=== PATIENT | male | born 1950 | race Caucasian/White ===

== ENCOUNTER 2025-07-18 10:55 | Emergency (ER) | payer OTHER, SELFPAY ==
[2025-07-18 11:04] VITALS: BP 149/77; PULSE 62; RESP 18; TEMP 37.1; O2SAT 98
[2025-07-18 11:08] VITALS: BP 149/77; PULSE 62; RESP 18; TEMP 37.1; O2SAT 98
--- NOTE | 2025-07-18 11:39 | W.ED.GENAD ---
Discharge Plan Disposition Patient Disposition: Home Condition: Stable Discharge Details Clinical Impression: Blister of right heel with infection, Hyperglycemia Primary Care Provider: Unknown,Unknown ED Provider: George Borja Home Meds and New Rx's Prescriptions: New cephalexin 500 mg capsule 500 mg PO QID Qty: 27 0RF Continued buprenorphine 20 mcg/hour patch weekly 2 patch transdermal QWEEK Patient Comments: two patches weekly ascorbic acid (vitamin C) [Acerola C] 500 mg tablet,chewable 500 mg PO BID gabapentin 300 mg capsule 300 mg PO TID Rx Instructions: 1 capsule by mouth am, 1 capsule at noon, 2 capsules at bedtime. fluticasone propionate [24 Hour Allergy Relief] 50 mcg/actuation spray,suspension 2 spray intranasal DAILY PRN Rx Instructions: administer into each nostril metformin 500 mg tablet 1,000 mg PO BID atorvastatin [Lipitor] 80 mg tablet 80 mg PO DAILY aspirin 81 mg capsule 81 mg PO DAILY insulin glargine [Basaglar KwikPen U-100 Insulin] 100 unit/mL (3 mL) insulin pen 16 unit subcut QPM Ozempic 0.25 mg or 0.5 mg(2 mg/1.5 mL) pen injector 0.5 mg subcut QWEEK cholecalciferol (vitamin D3) 25 mcg (1,000 unit) capsule 25 mcg PO DAILY clopidogrel [Plavix] 75 mg tablet 75 mg PO DAILY Eliquis 5 mg tablet 5 mg PO BID ferrous sulfate [FeroSul] 325 mg (65 mg iron) tablet 325 mg PO BID folic acid 1 mg tablet 1,000 mcg PO DAILY losartan 100 mg tablet 100 mg PO DAILY pantoprazole 40 mg tablet,delayed release (DR/EC) 40 mg PO DAILY allopurinol 300 mg tablet 300 mg PO DAILY furosemide [Lasix] 20 mg tablet 20 mg PO BID PRN (Reason: weight gain) metoprolol tartrate [Lopressor] 50 mg tablet 50 mg PO DAILY naloxone [Narcan] 4 mg/actuation spray,non-aerosol 1 spray intranasal ONCE nitroglycerin 3 mg tablet extended release buccal PRN Discharge Instructions Instructions: Blisters, Wound Infection Additional Instructions: You received tetanus booster today. Please take full course of antibiotic as prescribed. Change dressings daily and monitor for worsening infection which would include increased redness, increased swelling, increased pain, or increased discharge. Be sure to use sterile dressing material. Monitor your blood glucose closely and be sure to use your diabetic medications as prescribed. Please follow-up with your primary care physician. Call today to arrange a follow-up appointment for reassessment next week with your primary care doctor. Return to the emergency department immediately for any worsening or new concerning symptoms including worsening infection. Discharge Data Discharge Date/Time-TO BE ENTERED AT DEPARTURE: 07/18/25 13:40 HPI General Mode of arrival: ambulatory. Date/Time Provider Initiated Documentation: 07/18/25 11:20. Limitations to Documentation: no limitations. Information obtained by: patient. HPI Narrative: HISTORY OF PRESENT ILLNESS 75-year-old male with diabetes presenting with a foot blister. Patient reports a blister on his foot. Patient notes he ruptured the blister by puncturing with a knife 2 days ago. Uncertain if infection was introduced via knife. Blister appeared 2 days ago, punctured same day, now increasingly red. No fever. No previous blisters in this area, unsure of cause. Suspects loosefitting socks and boot. Uncertain of last tetanus injection. No exposure to wet conditions while wearing boots. Diabetes managed with insulin, blood sugar 90 this morning, under [facility]. Leg stent for artery, functioning well. Related Data Home Medications ?Medication ?Instructions ?Recorded ?Confirmed allopurinol 300 mg tablet 300 mg PO DAILY 07/18/25 07/18/25 apixaban 5 mg tablet (Eliquis) 5 mg PO BID 07/18/25 07/18/25 ascorbic acid (vitamin C) 500 mg 500 mg PO BID 07/18/25 07/18/25 chewable tablet (Acerola C) aspirin 81 mg capsule 81 mg PO DAILY 07/18/25 07/18/25 atorvastatin 80 mg tablet (Lipitor) 80 mg PO DAILY 07/18/25 07/18/25 buprenorphine 20 mcg/hour weekly 2 patch transdermal QWEEK 07/18/25 07/18/25 transdermal patch cephalexin 500 mg capsule 500 mg PO QID #27 caps 07/18/25 cholecalciferol (vitamin D3) 25 25 mcg PO DAILY 07/18/25 07/18/25 mcg (1,000 unit) capsule clopidogrel 75 mg tablet (Plavix) 75 mg PO DAILY 07/18/25 07/18/25 ferrous sulfate 325 mg (65 mg 325 mg PO BID 07/18/25 07/18/25 iron) tablet (FeroSul) fluticasone propionate 50 2 spray intranasal DAILY PRN 07/18/25 07/18/25 mcg/actuation nasal spray,suspension (24 Hour Allergy Relief) folic acid 1 mg tablet 1,000 mcg PO DAILY 07/18/25 07/18/25 furosemide 20 mg tablet (Lasix) 20 mg PO BID PRN weight gain 07/18/25 07/18/25 gabapentin 300 mg capsule 300 mg PO TID 07/18/25 07/18/25 insulin glargine 100 unit/mL (3 16 unit subcut QPM 07/18/25 07/18/25 mL) subcutaneous pen (Basaglar KwikPen U-100 Insulin) losartan 100 mg tablet 100 mg PO DAILY 07/18/25 07/18/25 metformin 500 mg tablet 1,000 mg PO BID 07/18/25 07/18/25 metoprolol tartrate 50 mg tablet 50 mg PO DAILY 07/18/25 07/18/25 (Lopressor) naloxone 4 mg/actuation nasal 1 spray intranasal ONCE 07/18/25 07/18/25 spray (Narcan) nitroglycerin 3 mg buccal mg buccal PRN 07/18/25 tablet,extended release pantoprazole 40 mg tablet,delayed 40 mg PO DAILY 07/18/25 07/18/25 release semaglutide 0.25 mg or 0.5 mg (2 0.5 mg subcut QWEEK 07/18/25 07/18/25 mg/1.5 mL) subcutaneous pen injector (Ozempic) Previous Rx's ?Medication ?Instructions ?Recorded cephalexin 500 mg capsule 500 mg PO QID #27 caps 07/18/25 Allergies Allergy/AdvReac Type Severity Reaction Status Date / Time empagliflozin Allergy Severe Anaphylaxis Verified 07/18/25 12:12 Sulfa (Sulfonamide Allergy Severe Anaphylaxis Verified 07/18/25 12:12 Antibiotics) General Stated Complaint: Cellulitis LION: 3 Review of Systems Constitutional Constitutional: Denies fever(s) Integumentary/Breasts Skin/Breast: Reports as per HPI Exam Const General: cooperative and no acute distress Cardio Rate: regular rate and not tachycardic Rhythm: regular rhythm Skin Other: 6cm ruptured blister posterior right heel with surrounding erythema, no induration or fluctuance Extrem General: edema Laterality: bilateral (Trace, pitting about the ankles) Other: Distal motor and sensation intact. Unable to palpate dorsalis pedis or posterior tibial pulse. Nursing perform Doppler and easily identified pulse. Course Vital Signs Vital signs: Vital Signs Temperature 37.1 C 07/18/25 11:04 Pulse 62 07/18/25 11:04 Respiratory Rate 18 07/18/25 11:04 Blood Pressure 149/77 H 07/18/25 11:04 Pulse Oximetry 98 07/18/25 11:04 Temperature 37.1 C 07/18/25 11:08 Pulse 62 07/18/25 11:08 Respiratory Rate 18 07/18/25 11:08 Blood Pressure 149/77 H 07/18/25 11:08 Pulse Oximetry 98 07/18/25 11:08 Pain Level 7 07/18/25 11:08 Medical Decision Making ASSESSMENT AND PLAN Initial Assessment: Foot blister with mild erythema, suspect early infection. Diabetes mellitus, well-controlled. Differential Diagnosis: - Foot blister: Mild erythema, possible infection. Plan: Antibiotics, Bacitracin, Doppler study. - Tetanus: Uncertain vaccination status. Plan: Confirm status, administer tetanus shot if needed. ED Course: - Antibiotic prescription sent. - Bacitracin applied. - Doppler study confirmed pulse. - Tetanus shot administered. - POC checked - mild elevation Final Assessment: Foot blister with mild erythema, suspect early infection. Will initiate cephalexin and Bacitracin applied. Doppler study confirmed pulse. Tetanus shot administered. Clinical Impression: - Foot blister with mild erythema, suspect early infection. - Diabetes mellitus, well-controlled. Disposition: Discharge: Home. Return if increased redness, swelling, or fever. Follow-Up: Primary care for diabetes management. Patient Education: Keep foot clean and dry. Instructions on antibiotic use. Discussed need for tight glucose control. This document was written with the assistance of IDALMIS Kilgore. The patient consented to its use. PFSH All Active Problems Hyperglycemia (Acute) Blister of right heel with infection (Acute) Social History Smoking risk assessment performed?: No
[2025-07-18] MEDS: Cephalexin 500 MG CAP PO (11:41)
[2025-07-18 12:18] VITALS: BP 131/51; PULSE 60; RESP 16; O2SAT 99
[2025-07-18] MEDS: Diph,Pertuss(Acell),Tet Vac/Pf 0.5 ML SYR IM (12:45)
--- NOTE | 2025-07-19 09:24 | NUR.NOTE ---
Access chart to get the address so that discharge instructions and tetanus card will be mailed to him. Nursing Note:
== END 2025-07-18 13:40 | disposition home or self-care (01) ==
PROVIDERS: Emergency Provider Student in an Organized Health Care Education/Training Program
DX: S90.821A Blister (nonthermal), right foot, initial encounter (principal); X58.XXXA Exposure to other specified factors, initial encounter; E11.65 Type 2 diabetes mellitus with hyperglycemia
CPT/HCPCS: 99283; 99284; 90471; 36416; 82962; 90715

== ENCOUNTER → 2025-09-15 02:23 | Outpatient (CLI) | payer OTHER, SELFPAY ==
--- NOTE | 2025-09-15 10:54 | DI.RAD_ITS ---
Exam(s) XR FOOT RT COMPLETE EXAM: XR FOOT RT COMPLETE CLINICAL HISTORY: Right foot pain,[id number],m79.671,s89.301a. TECHNIQUE: 2D digital imaging was performed. Three views. COMPARISON: CR XR FOOT COMPLETE MIN 3V RT from 09/04/2025 FINDINGS: BONES: No acute fracture is present. Stable appearance of rounded lucency in the tuft of the distal phalanx of the great toe. This somewhat obscured by the overlying fingernail. JOINTS: No dislocation present. No significant degenerative changes. SOFT TISSUE: Vascular calcifications. Soft tissue swelling of the great toe. IMPRESSION: Stable lucency in the tuft of the distal phalanx of the great toe. DATA REPOSITORY: RADIATION DOSE DELIVERED:
--- NOTE | 2025-09-15 10:54 | DI.RAD_ITS ---
Exam(s) XR ANKLE RT COMPLETE EXAM: XR ANKLE RT COMPLETE CLINICAL HISTORY: Right ankle pain,[id number],closed fx distal end of fibule,m25.571,. TECHNIQUE: 2D digital imaging was performed. Three views. COMPARISON: CR XR FOOT COMPLETE MIN 3V RT from 09/04/2025 CR XR FOOT RT COMPLETE from 09/15/2025 FINDINGS: BONES: No acute fracture is present. Subacute or old nonunited oblique fracture through the distal fibula. This was pleasant on prior outside foot exam. No bony destructive lesion is seen. JOINTS: The ankle mortise is normally aligned. No tibiotalar joint space narrowing. SOFT TISSUE: Vascular calcifications. Mild swelling around the malleoli. IMPRESSION: Subacute or old nonunited fracture of the lateral malleolus. DATA REPOSITORY: RADIATION DOSE DELIVERED:
== END ==
PROVIDERS: Visit Provider Podiatrist
DX: M79.671 Pain in right foot (principal); S89.301D Unspecified physeal fracture of lower end of right fibula, subsequent encounter for fracture with routine healing; M25.571 Pain in right ankle and joints of right foot; L97.412 Non-pressure chronic ulcer of right heel and midfoot with fat layer exposed; E11.9 Type 2 diabetes mellitus without complications; I73.89 Other specified peripheral vascular diseases; L60.3 Nail dystrophy; B35.1 Tinea unguium; X58.XXXD Exposure to other specified factors, subsequent encounter; Z83.3 Family history of diabetes mellitus; R09.89 Other specified symptoms and signs involving the circulatory and respiratory systems; R60.0 Localized edema; R23.4 Changes in skin texture; L60.2 Onychogryphosis; L60.8 Other nail disorders
CPT/HCPCS: 11042; 11721; 73610; 73630

== ENCOUNTER 2025-10-16 12:24 | Outpatient (REF) | payer OTHER, SELFPAY | END 2025-10-16 12:25 | disposition home or self-care (01) | LOC: LBN 12:24 | PROVIDERS: PCP Occupational Therapist; Visit Provider Podiatrist | DX: L97.529 Non-pressure chronic ulcer of other part of left foot with unspecified severity (principal); S91.309A Unspecified open wound, unspecified foot, initial encounter | CPT/HCPCS: 87070; 87075; 87205 ==